=== PATIENT | female | born 1950 | race Caucasian/White ===

== ENCOUNTER 2016-12-27 11:30 | Inpatient (IN) | payer BC, OTHER ==
--- NOTE | ~2016-12-27 | HP ---
Unit #: [id number] #: [id number] Patient: BRENT MALDONADO [id number] [address] [address] [id number] I MR#: [id number] NAME: BRENT MALDONADO. ROOM: [facility] Age: 66 Sex: F Admission Date: 12/27/2016 : 1950 Attending Physician: Bob Correa M.D. Primary Care Physician: Adan Silva M.D. HISTORY AND PHYSICAL CHIEF COMPLAINT High sugars. HISTORY OF PRESENT ILLNESS The patient is a 66-year-old female with a past medical history of ischemic cerebrovascular accident, uncontrolled diabetes mellitus and hypertension, brought to the emergency room from the PCP office with sugars running high in the range of 550s. The patient's last hemoglobin A1c was more than 15. That was done in the PCP office. The patient has been noncompliant with her medication and has been eating pancakes for the last month. The patient's hemoglobin A1c back in June was 6.5 and the sugars were under control but, for unknown reason, the patient is not compliant for the last month and not checking the sugars. The patient has been on the sugary diet with pancakes for the last one month. The patient also complains of headache. Denies any nausea, vomiting, chest pain, palpitations, dizziness, fever, chills, short of breath. The patient is being admitted for uncontrolled sugars. PAST MEDICAL HISTORY 1. History of prior CVA. 2. Diabetes mellitus. 3. Hypertension. 4. History of arrhythmia. 5. Prior history of lung nodule. 6. Prior history of syncope. 7. Anxiety. PAST SURGICAL HISTORY 1. History of tonsillectomy. 2. Hysterectomy. 3. Cholecystectomy. ALLERGIES Allergic to tetracycline, cephalosporins, gabapentin and tetanus. HOME MEDICATIONS Medication list from the old records - she has been on: 1. Glipizide. 2. Xanax. 3. Aspirin. 4. Vaseretic. FAMILY HISTORY Significant for strokes in the patient's mother. Unit #: [id number] #: [id number] Patient: BRENT MALDONADO SOCIAL HISTORY The patient is a , in his 30s from [place] exposure. 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 She has never smoked. No history of drinking alcohol or illicit drug abuse. REVIEW OF SYSTEMS Fourteen point review of systems was performed and only pertinent positive findings are described above, remaining are negative. PHYSICAL EXAMINATION GENERAL: The patient is lying on the bed, not in acute distress. VITALS: The patient is afebrile. Pulse is 75, temperature is 97.9, blood pressure 139/72. HEAD: Atraumatic, normocephalic. EENT: Pupils equal, round, reactive to light and accommodation. Extraocular movements are intact. Moist mucous membranes. NECK: Supple. No JVD. LUNGS: Clear to auscultation bilaterally, no rhonchi, no wheezing. HEART: Regular rate and rhythm. ABDOMEN: Soft. Positive bowel sounds. EXTREMITIES: No cyanosis, no clubbing. The patient has a callus formation at the left foot. NEUROLOGICAL: Alert, awake, oriented. No gross focal motor deficit. PSYCH: Mood and affect appropriate. DIAGNOSTIC STUDIES LABORATORY DATA: Lab data is pending but from the PCP's office the hemoglobin A1c was more than 15 and the sugar is in the range of 550. Creatinine was normal. No other abnormalities in the CMP. Blood work from the hospital is pending. ASSESSMENT AND PLAN 1. Uncontrolled diabetes. 2. Hypertension. Plan is to admit patient for observation to telemetry. We will start the patient on sliding scale. Hemoglobin A1c more than 15. We will start the on Levemir 10 units subcu b.i.d. Will adjust the doses and continue with sliding scale and diabetic education. Repeat the labs, CBC, BMP. Case management for home health aid. Wound care for the left foot callus. Further recommendations to follow as more lab results are available. Dictated by Bo Huynh TD: 12/27/2016 12:06 JOB #: [id number] Unit #: [id number] #: [id number] Patient: BRENT MALDONADO HISTORY AND PHYSICAL X X HISTORY AND PHYSICAL
--- NOTE | ~2016-12-27 | HP ---
Unit #: [id number] #: [id number] Patient: BRENT MALDONADO [id number] [address] [address] [id number] I MR#: [id number] NAME: BRENT MALDONADO. ROOM: 318 Age: 66 Sex: F Admission Date: 12/27/2016 : 1950 Attending Physician: Bob Correa M.D. Primary Care Physician: Adan Silva M.D. HISTORY AND PHYSICAL ADDENDUM The lab results are back and patient has a blood sugar of 840 with a sodium of 130 and potassium of 5.6. The patient will be admitted as inpatient with sugars more than 500 and hyperkalemia. PLAN The patient will receive Levemir insulin and high-dose sliding scale. The patient will be started on IV fluids normal saline at 100 mL/hr and Kayexalate 30 mg x1. I will repeat the potassium again in six hours. I will have the endocrine consult for the uncontrolled sugars with the hyperkalemia likely due to hyponatremia. Further recommendations will follow. Dictated by Bo Huynh TD: 12/27/2016 15:02 JOB #: [id number] HISTORY AND PHYSICAL X X HISTORY AND PHYSICAL
--- NOTE | ~2016-12-27 | CO ---
Unit #: [id number] #: [id number] Patient: BRENT MALDONADO [id number] [address] [place], [place] [address] [id number] I MR#: [id number] NAME: BRENT MALDONADO. ROOM: 318 Age: 66 Sex: F Admission Date: 12/27/2016 : 1950 Attending Physician: Bob Correa M.D. Primary Care Physician: Adan Silva M.D. Consultation Date: 12/27/2016 CONSULTATION REPORT REASON FOR CONSULT Uncontrolled diabetes mellitus. HISTORY OF PRESENT ILLNESS This is a 66-year-old white female, who has a medical history of type 2 diabetes mellitus. She was seen in the primary care's office. She was sent to the emergency room after she was found to have high blood sugars in the PCP's office. On further workup, arterial blood sugar was over 800. She had stopped taking her medications more than a month ago, and she has been eating and has not been watching her diet. REVIEW OF SYSTEMS Remarkable for polyuria, polydipsia, weakness. Rest of the 10-point review of systems is unremarkable. PAST MEDICAL HISTORY Type 2 diabetes mellitus, history of CVA, hypertension, arrhythmia, anxiety. PAST SURGICAL HISTORY Tonsillectomy, hysterectomy, cholecystectomy. ALLERGIES To tetracyclines, , gabapentin, tetanus. HOME MEDICATIONS She has been on glipizide, but probably she has not been taking Xanax, aspirin, and Vaseretic. SOCIAL HISTORY She is a . Declines tobacco or alcohol. 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 PHYSICAL EXAMINATION GENERAL: She is lying comfortably. No acute distress. VITAL SIGNS: Afebrile. Blood pressure is stable. She weighs 63.5 kg. HEENT: EOMI. Pupils are equally reactive to light. NECK: Supple. No thyromegaly noted. CHEST: Has good air entry. CVS: Regular rhythm. S1, S2. ABDOMEN: Soft and nontender. Bowel sounds positive. EXTREMITIES: No edema or ulcers are noted. DIAGNOSTIC STUDIES Unit #: [id number] #: [id number] Patient: BRENT MALDONADO LABORATORY RESULTS: Glucose on admission was 840, sodium 130, potassium 5.6, chloride 95. A1c is not available, is pending. ASSESSMENT 1. Type 2 diabetes mellitus, uncontrolled due to the poor compliance with the medications and diet. 2. Pseudohyponatremia. 3. Hyperkalemia, treated. PLAN We will add NovoLog 5 units with each meal. Continue Levemir 10 units subcu b.i.d. Continue supplemental sliding scale as needed. We will continue to follow for further management. The patient will need the Nutrition consult. Dictated by... Bo Wagner/isabell TD: 12/28/2016 02:39 JOB #: [id number] CONSULTATION REPORT X Mitzy Storm MD X CONSULTATION REPORT
--- NOTE | ~2016-12-27 | A ---
[facility] Nutrition Therapy DATE: 12/28/16 Patient: BRENT MALDONADO Physician: RUSSELL Address: [address] [place] [address] Room/Bed: [address] [place] [address], Zip: [place] [address] Admit Date: 12/27/16 Date of : [birth year] Height: Weight: 121 55 NUTRITIONAL ASSESSMENT: REASON: CONSULT RE: DIET EDUCATION PT WAS ALSO SCREENED FOR ONE NUTRITION RISK PT RE: PRESSURE ULCER/NON-HEALING WOUND BUT NOT APPROPRIATE PT IS 66 Y.O. FEMALE ADMITTED FOR DIABETES UNCONTROLLED HT: 5'1", WT: 139# (63 KG), BMI: 26.3 RD PROVIDED WRITTEN AND VERBAL CC DIET EDUCATION. RD PROVIDED LIST OF FOODS TO AVOID/LIMIT AND FOODS TO EAT MORE OFTEN. RD EMPHASIZED IMPORTANCE OF CONSUMING CONSISTENT MEAL SCHEDULE + BALANCED MEALS AND SNACKS. PT REPORTS CONSUMING A LOT OF WHITE CARBOHYDRATES, SUCH PANCAKES, BREAD AND POTATOES. THIS RD PROVIDED HEALTHIER ALTERNATIVES. PT VERBALIZED UNDERSTANDING OF THE TOPIC. PT REPORTED NO DIET QUESTIONS AT THIS TIME. RD TO REMAIN AVAILABLE. OF NOTE, PT SEEMED PLEASANTLY CONFUSED DURING VISIT RECOMMENDATIONS: 1. ENCOURAGE COMPLIANCE OF CURRENT DIET ORDER-CC 2. RE-CONSULT RD IF FURTHER DIET EDUCATION REQUESTED RD WILL F/U PER PROTOCOL Respectfully, TATI HOLLAND MS, RD, LD Food and Nutritional Services [facility] cc: client file
--- NOTE | ~2016-12-27 | DS ---
Unit #: [id number] #: [id number] Patient: BRENT MALDONADO [id number] [address] [address] [id number] I MR#: [id number] NAME: BRENT MALDONADO. ROOM: 240 Age: 66 Sex: F Admission Date: 12/27/2016 : 1950 Discharge Date: 12/30/2016 Attending Physician: Hien Trevino M.D. Primary Care Physician: Adan Silva M.D. DISCHARGE SUMMARY ADDENDUM HOSPITAL COURSE Overnight the patient has remained stable, and blood sugars have remained stable. Discussion with family again today indicates that they are planning to send her home rather than going to long-term care. This is secondary to the patient requiring a locked dementia unit, which unfortunately, we are having difficulty arranging. Family is also in the process of obtaining power of trademark attorney paperwork. The patient will be discharged home on medications as previously noted with the exception of changing NovoLog to 6 units subcu t.i.d. given I suspect her diet at home will be different. I am also taking her Vaseretic 10/25 mg and changing it to half a tab p.o. daily rather than writing for Vasotec and Hydrochlorothiazide independent of each other. Dictated by... Hien Trevino M.D. SHAYLEE/milad TD: 12/31/2016 12:29 JOB #: [id number] DISCHARGE SUMMARY X Hien Trevino MD X DISCHARGE SUMMARY
--- NOTE | ~2016-12-27 | DS ---
Unit #: [id number] #: [id number] Patient: BRENT PRADO [id number] [address] [place], [place] [address] [id number] I MR#: [id number] NAME: BRENT PRADO. ROOM: 240 Age: 66 Sex: F Admission Date: 12/27/2016 : 1950 Discharge Date: 12/30/2016 Attending Physician: Hien Trevino M.D. Primary Care Physician: Adan Silva M.D. DISCHARGE SUMMARY PRINCIPAL DIAGNOSES 1. Diabetes mellitus type 2, insulin requiring and uncontrolled with hemoglobin A1c of 15.4. 2. Dementia with associated behavioral disturbance, likely vascular in origin. 3. Hypertension. 4. Hyperkalemia, resolved. 5. Prior history of stroke. 6. History of arrhythmia. 7. Anxiety. 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 Storm, endocrinology. PROCEDURE None. CLINICAL HISTORY AND HOSPITAL COURSE Ms. Prado is a 66-year-old female referred from her primary care provider due to significant hyperglycemia. Please refer to H and P for further details. The patient was also found to be hyperkalemic and was subsequently admitted to inpatient status to the hospital. The patient was placed on insulin subcutaneously and Dr. Storm was consulted. With insulin therapy, sugars have improved significantly. Glucose readings are now in the one-teens to low 220s. She did have a single episode of hypoglycemia and we are going to decrease insulin slightly. She has also received diabetic education. In regard to patient's hyperkalemia, this was treated and has not recurred. I think she is safe to place back on BARBARA inhibitor. Blood pressure here has been on the low end of normal on half dose of her blood pressure medications and thus I am going to discontinue. The patient does have significant dementia and is known for not taking her medications, wandering in the street, and so forth. She is unsafe to be living at home independently and after discussion with family, unfortunately they could not care for her at home. Plan is for patient to transition to a long-term care facility upon discharge from this facility when arranged. DISCHARGE CONDITION Stable. Unit #: [id number] #: [id number] Patient: BRENT PRADO DISCHARGE STATUS Discharge to long-term care. DISCHARGE MEDICATIONS 1. Discontinue Colestid. 2. Coreg 25 mg b.i.d. 3. Namzaric 7/10 mg one tablet daily. 4. Hydrochlorothiazide 12.5 mg daily. 5. Enalapril 5 mg daily. 6. Levemir 15 units subcutaneously at night. 7. NovoLog 5 units subcutaneously t.i.d. with meals with associated medium-dose sliding scale. 8. Aspirin 81 mg daily. 9. Omeprazole 20 mg daily. 10. Aggrenox one tablet p.o. b.i.d. DISCHARGE INSTRUCTIONS 1. The patient was instructed to follow a constant carb diet. 2. She should continue Accu-Cheks a.c. and at bedtime. 3. She can increase her activity as tolerated. FOLLOWUP The patient will follow up with certified court/medical interpreter of facility upon acceptance. Time spent on discharge today, 34 minutes. Dictated by... Bo Alvarez/flor TD: 12/30/2016 11:13 JOB #: [id number] DISCHARGE SUMMARY X Hien Trevino MD X DISCHARGE SUMMARY
[~2016-12-27 11:30] MED LIST: AGGRENOX PO; AGGRENOX1 CAP PO; ALLEGRA-D1 TAB.SR1 PO; ALLEGRA180 MG PO; ALLERGY MED PO; ALPRAZOLAM PO; AMARYL; AMOXICILLIN; AMOXICILLIN PO; AMOXICILLIN875 MG PO; ARICEPT5 M1 PO; ASPIRIN; ASPIRIN EC81 M1 PO; ASPIRIN81 M1 PO; ASPIRINEC PO; ATENOLOL; ATENOLOL PO; AVANDIA; CARDIZEM; CARDIZEM CD PO; CARVEDILOL25 MG PO; CERTAGEN PO; CHOLESTEROL MED; CLARITIN10 MG; COLESTID PO; COLESTIPOL HCL1 G; COLESTIPOL HCL11 PO; COREG PO; COREG12.5 MG PO; CYANOCOBAL1000 MCG/M INJ; DIABETA5 M1 PO; DILTIAZEM 24HR120 MG PO; DILTIAZEM ER120 M2 PO; ENALAPRIL/HCTZ1 TA3 PO; FAMOTIDINE PO; FERROUS SULFATE PO; FOLIC ACID1 MG PO; GLUCOPHAGE500 M1 PO; GLUCOPHAGE500 MG PO; GLUCOTROL PO; GLYBURIDE; GLYBURIDE PO; GLYNASE PO; IRON PO; JANUVIA50 MG PO; KETOPROFEN PO; LIPITOR; LIPITOR PO; METFORMIN HCL500 M1 PO; METFORMIN PO; MICRONASE5 M1 PO; MICRONASE5 M2 PO; NAMZARIC 7 MG-1 EACH PO; NIACIN500 M2 PO; OMEPRAZOLE20 M1 PO; OMEPRAZOLE20 M2 PO; PATIENT'S PHARMACY; PHENERGAN PO; PLAVIX PO; POTASSIUM GLUCONATE PO; POTASSIUM PO; PRAVACHOL20 MG PO; PRILOSEC PO; PRILOSEC20 M1 PO; TENORMIN25 MG PO; TOPAMAX25 MG PO; TUSSIONEX PENN473 ML; VASERETIC 10-251 TAB PO; VASERETIC 5-12.1 TAB; VASERETIC 5-12.1 TAB PO; VASORETIC; VASOTEC PO; VITAMIN B650 M1 PO; XANAX0.5 MG PO; ZITHROMAX; ZOFRAN ODT4 MG PO
[2016-12-27 13:12] LABS: BASOPHIL% 0.6 % (0-2.5); EOSINOPHIL% 0.6 % (0.0-7.0); HEMATOCRIT 36.8 % (35.0-45.0); HEMOGLOBIN 12.2 gm/dL (12.0-16.0); LYMPHOCYTE# 0.5 X10e3 (1.0-3.5); LYMPHOCYTE% 12.7 % (17.0-45.0); MEAN CELL VOLUME 96.4 FL (83-96); MEAN CORPUSCULAR HEMOGLOBIN 31.9 PG (28-34); MEAN CORPUSCULAR HGB CONC 33.1 g/dL (30-36); MEAN PLATELET VOLUME 9.5 FL (6.5-11.5); MONOCYTE# 0.2 X10e3 (0-1.0); MONOCYTE% 4.7 % (3.0-12.0); NEUTROPHIL# 3.4 X10e3 (1.5-7.1); NEUTROPHIL% 81.4 % (40-75); PLATELET COUNT 184 X10e3 (140-420); RED BLOOD COUNT 3.82 X10e (3.90-5.30); RED CELL DISTRIBUTION WIDTH 12.1 % (11.0-15.5); WHITE BLOOD COUNT 4.2 X10e3 (4.0-10.5)
[2016-12-27 13:14] LABS: DIFF IND NO
[2016-12-27 13:44] LABS: BLOOD UREA NITROGEN 19 mg/dL (9-23); BUN/CREATININE RATIO 21.11; CALCIUM SERUM 8.9 mg/dL (8.4-10.2); CARBON DIOXIDE 24 mmol/L (22-31); CHLORIDE 95 mmol/L (100-111); CREATININE SERUM 0.9 mg/dL (0.6-1.4); GLOM FILT RATE Estimated ABOVE60 mL/min (>60); SODIUM 130 mmol/L (135-145)
[2016-12-27 14:11] LABS: GLUCOSE FASTING 840 mg/dL (70-110)
[2016-12-27 14:12] LABS: POTASSIUM 5.6 mmol/L (3.5-5.1)
[2016-12-28 09:47] LABS: BASOPHIL% 0.6 % (0-2.5); EOSINOPHIL# 0.1 X10e3 (0-0.7); EOSINOPHIL% 1.2 % (0.0-7.0); HEMATOCRIT 35.2 % (35.0-45.0); HEMOGLOBIN 11.9 gm/dL (12.0-16.0); LYMPHOCYTE% 19.3 % (17.0-45.0); MEAN CORPUSCULAR HEMOGLOBIN 31.5 PG (28-34); MEAN CORPUSCULAR HGB CONC 33.9 g/dL (30-36); MEAN PLATELET VOLUME 8.9 FL (6.5-11.5); MONOCYTE# 0.2 X10e3 (0-1.0); MONOCYTE% 4.3 % (3.0-12.0); NEUTROPHIL# 3.8 X10e3 (1.5-7.1); NEUTROPHIL% 74.6 % (40-75); PLATELET COUNT 184 X10e3 (140-420); RED BLOOD COUNT 3.78 X10e (3.90-5.30); RED CELL DISTRIBUTION WIDTH 12.1 % (11.0-15.5); WHITE BLOOD COUNT 5.1 X10e3 (4.0-10.5)
[2016-12-28 09:52] LABS: DIFF IND NO; MEAN CELL VOLUME 93.1 FL (83-96)
[2016-12-28 10:25] LABS: BLOOD UREA NITROGEN 17 mg/dL (9-23); BUN/CREATININE RATIO 24.28; CALCIUM SERUM 8.3 mg/dL (8.4-10.2); CARBON DIOXIDE 24 mmol/L (22-31); CHLORIDE 101 mmol/L (100-111); CREATININE SERUM 0.7 mg/dL (0.6-1.4); GLOM FILT RATE Estimated ABOVE60 mL/min (>60); GLUCOSE FASTING 308 mg/dL (70-110); POTASSIUM 3.6 mmol/L (3.5-5.1); SODIUM 135 mmol/L (135-145)
[2016-12-29 06:35] LABS: BLOOD UREA NITROGEN 12 mg/dL (9-23); CARBON DIOXIDE 26 mmol/L (22-31); CHLORIDE 103 mmol/L (100-111); CREATININE SERUM 0.6 mg/dL (0.6-1.4); GLOM FILT RATE Estimated ABOVE60 mL/min (>60); GLUCOSE FASTING 116 mg/dL (70-110); MAGNESIUM 1.8 mg/dL (1.6-3.0); POTASSIUM 3.7 mmol/L (3.5-5.1); SODIUM 139 mmol/L (135-145)
[2016-12-30] MEDS ORDERED: VASOTEC10 MG PO (10:21)
[2016-12-30] MEDS ORDERED: ASPIRIN81 MG PO (10:22)
[2016-12-30] MEDS ORDERED: HYDROCHLOROTH12.5 M1 PO (10:22)
[2016-12-30] MEDS ORDERED: NOVOLOG100 U/ML (10:23)
[2016-12-30] MEDS ORDERED: LEVEMIR100 UNITS/ SUBQ (10:23)
[2016-12-30] MEDS ORDERED: NOVOLOG100 UNITS/ SUBQ (10:24)
[2016-12-30] MEDS ORDERED: VASERETIC 10-251 TAB PO (10:49)
== END 2016-12-30 11:06 | disposition home health service (06) | DRG 638 ==
LOC: CEDOF 11:30 → C2A 12-29 11:16
PROVIDERS: Internal Medicine
DX: E11.65 Type 2 diabetes mellitus with hyperglycemia (principal); E87.1 Hypo-osmolality and hyponatremia; E87.5 Hyperkalemia; F03.90 Unspecified dementia, unspecified severity, without behavioral disturbance, psychotic disturbance, mood disturbance, and anxiety; Z91.11 Patient's noncompliance with dietary regimen; Z91.14 Patient's other noncompliance with medication regimen; Z86.73 Personal history of transient ischemic attack (TIA), and cerebral infarction without residual deficits; F41.9 Anxiety disorder, unspecified; Z90.710 Acquired absence of both cervix and uterus; Z90.49 Acquired absence of other specified parts of digestive tract; Z88.8 Allergy status to other drugs, medicaments and biological substances; Z79.82 Long term (current) use of aspirin; I10 Essential (primary) hypertension
CPT/HCPCS: 80048; 82607; 82947; 83036; 83735; 84132; 84443; 85025; 97116; 97161; 97165; G8978-GP; G8979-GP; G8980-GP; G8987-GO; G8988-GO; G8989-GO; J1650; J1815

== ENCOUNTER 2017-01-01 15:03 | Observation (INO) | payer BC, OTHER ==
--- NOTE | ~2017-01-01 | A ---
[facility] Nutrition Therapy DATE: 01/15/17 Patient: BRENT MALDONADO Physician: CHRISTELLE Address: [address] [place] [address] Room/Bed: [address] [place] [address], Zip: [place] [address] Admit Date: 01/01/17 Date of : [birth year] Height: 5 0 Weight: 119 54.4 NUTRITIONAL ASSESSMENT: REASON: LOS ASSESSMENT PT IS 66 Y.O. FEMALE ADMITTED FOR ELEVATED BLOOD SUGAR LEVELS PMH: UNCONTROLLED T2DM, HTN, HLD, CVA, DEMENTIA, ANEMIA Anthropometrics: 5'0", WT: 119# (54 KG), BMI: 23.2 Labs: GLU: 166, ALB: 3.2 (ADMIT), A1c: 15.4 (12/27/16) Meds: NOVOLOG, LEVEMIR, LIPITOR, PROTONIX, ZOFRAN, NACL I/O & Bowel function: 890/600, 1 BM NOTED Skin Integrity: LLE 1+ EDEMA; NO KNOWN SKIN ISSUES Estimated Nutrition Needs: INCREASED NUTRIENT NEEDS 2' ?WEIGHT LOSS NOTED, POOR PO INTAKE/APPETITE PRIOR TO ADMIT Assessment: CHART REVIEWED AND EVENTS NOTED. PT SEEN FOR LENGTH OF STAY ASSESSMENT (10+ DAYS). PT REPORTS APPETITE IMPROVING, NOTING NO C/O N/V/D. PT DENIES ANY CHEWING OR SWALLOWING DIFFICULTIES. PT REPORTS DECREASED PO INTAKE AND APPETITE PRIOR TO ADMIT. PT REPORTS WEIGHT LOSS BUT UNABLE TO IDENTIFY AMOUNT AND TIME TRAME (?DEMENTIA). PER [employer], PT WEIGHED ~121-139# IN DEC 2015??. OF NOTE, PT CONFUSED AND LETHARGIC AT THIS TIME. RD ENCOURAGED ADEQUATE KCAL AND PROTEIN INTAKE, PT AGREED TO GLUCERNA SHAKES BID. RD ALSO LEFT REQUESTED WRITTEN CC DIET EDUCATION. PT REPORTED NO QUESTIONS AT THIS TIME. RD TO REMAIN AVAILABLE. Dx: INADEQUATE NUTRIENT INTAKE R/T DECREASED APPETITE AEB PT REPORT ABOVE. -IMPAIRED GLYCEMIC CONTROL R/T DX, PMH AEB ELEVATED BLOOD SUGAR LEVELS, ELEVATED A1c, NEED FOR THERAPEUTIC DIET ORDER. Intervention: 1. CC+ HH DIET (60 GRAMS CARBS PER MEAL) 2. GLUCERNA SHAKES BID 3. WRITTEN CC DIET EDUCATION Monitoring, Evaluation and Goals: 1. PO INTAKE; PROVIDE AND CONSUME ADEQUATE NUTRITION W/NO C/O N/V/D (PO>50%) 2. WEIGHTS; PREVENT FURTHER WEIGHT LOSS? 3. LABS; WNL: GLU [facility] Nutrition Therapy DATE: 01/15/17 Patient: BRENT M ERICA Physician: CHRISTELLE Address: [address] [place] [address] Room/Bed: [address] [place] [address], Zip: [place] [address] Admit Date: 01/01/17 Date of : [birth year] Height: 5 0 Weight: 119 54.4 MONITOR: -PO INTAKE/APPETITE -WEIGHTS -LABS (GLU) Recommendations: 1. ORDER JOSHUA GLUCERNA SHAKES BID W/MEALS 2. ENCOURAGE COMPLIANCE OF CURRENT DIET ORDER ABOVE 2' DX, PMH 3. ENCOURAGE ADEQUATE KCAL AND PROTEIN INTAKE RD WILL F/U PER PROTOCOL PT IS MILD/MODERATELY COMPROMISED Respectfully, TATI HOLLAND MS, RD, LD Food and Nutritional Services [facility] cc: client file
--- NOTE | ~2017-01-01 | CO ---
Unit #: [id number] #: [id number] Patient: BRENT MALDONADO [id number] [address] [place], [place] [address] [id number] I MR#: [id number] NAME: BRENT MALDONADO. ROOM: [facility] Age: 66 Sex: F Admission Date: 01/01/2017 : 1950 Attending Physician: Bob Correa M.D. Primary Care Physician: Adan Silva M.D. Consultation Date: 01/14/2017 CONSULTATION REPORT REASON FOR CONSULTATION Uncontrolled diabetes mellitus with hypoglycemia. HISTORY OF PRESENT ILLNESS This is a 66-year-old female, who was initially residing at home. She was initially admitted on 12/27/2016 in the hospital with hyperglycemia and then she was discharged home, but she was readmitted again on 01/01/2017 with the uncontrolled blood sugars with the blood sugars were above 500. It seems like she has not been able to take care of her due to her dementia and family who has not been able to take care of her either. The patient is a very poor historian. Since her admission, her blood sugar has been very erratic she has some episodes of the hypoglycemia also. Her insulin has been adjusted several times despite that her blood sugars are uncontrolled. I have been asked to see the patient for further management. REVIEW OF SYSTEMS The patient has memory problems. Rest of the 12-point review of systems is unremarkable. PAST MEDICAL HISTORY 1. Diabetes mellitus, uncontrolled. 2. History of hypoglycemia. 3. Hypertension. 4. Dementia. 5. Cardiac arrhythmias. PAST SURGICAL HISTORY Tonsillectomy, hysterectomy, and cholecystectomy. SOCIAL HISTORY The patient lives alone and states her daughter lives close to her. She walks without assistance. She has no tobacco use. No alcohol. FAMILY HISTORY CVA. ALLERGIES cephalosporin, tetracycline, carbapenem, and tetanus toxoid. CURRENT MEDICATION List is reviewed. The patient is on NovoLog 10 units with meals plus high dose supplement sliding scale. She is on Levemir which was discontinued. For other medication list, please see current MAR. Unit #: [id number] #: [id number] Patient: BRENT MALDONADO PHYSICAL EXAMINATION GENERAL: She is comfortable, in no acute distress. VITAL SIGNS: Temperature, she is afebrile; blood pressure is 149/69. HEENT: EOMI. Pupils equally reactive to light. NECK: Supple. No thyromegaly noted. CHEST: Good air entry. CVS: Regular rhythm. No murmurs. ABDOMEN: Soft and nontender. Bowel sounds positive. EXTREMITIES: No edema noted. No ulcers. SKIN: No rashes. NEUROLOGIC: Nonfocal. Moving all extremities. PSYCHIATRIC: Does have a memory problems. DIAGNOSTIC STUDIES LABORATORY RESULTS: Reviewed. Last A1c on 12/27/2016 was 15.4. ASSESSMENT 1. Type 2 diabetes mellitus, uncontrolled. 2. Insulin dependence. 3. Recurrent hypoglycemia due to the insulin. PLAN I am going to restart the patient back on her Levemir 10 units subcu in the morning daily. Change the NovoLog to 8 units with meals. Limit carbs to 60 g consistent carb diet 15 g, carb at bedtime. Discontinue high-dose sliding scale to check the only low dose. Accu-Cheks a.c. and h.s. We will continue to follow the patient for further management. Dictated by... Bo Wagner/isabell TD: 01/15/2017 00:13 JOB #: [id number] CONSULTATION REPORT X Mitzy Storm MD CONSULTATION REPORT
--- NOTE | ~2017-01-01 | DS ---
Unit #: [id number] #: [id number] Patient: BRENT MALDONADO [id number] [address] [place], [place] [address] [id number] I MR#: [id number] NAME: BRENT MALDONADO. ROOM: 205 Age: 66 Sex: F Admission Date: 01/01/2017 : 1950 Discharge Date: Attending Physician: Bob Correa M.D. Primary Care Physician: Adan Silva M.D. DISCHARGE SUMMARY DISCHARGE DIAGNOSES 1. Uncontrolled diabetes mellitus on insulin. 2. Normocytic anemia. 3. Hypertension. 4. Dementia with behavioral disturbance. HOSPITAL COURSE The patient is a 66-year-old female with a past medical history of diabetes, anemia, hypertension, CVA, arrhythmia, lung nodules. Brought to the emergency room with elevated sugars. The patient's sugars at the time of arrival in the emergency room was 519 with a bicarb of 26 and pH of 7.45. The patient was admitted to the floor. The patient was seen by endocrinology during the hospitalization and patient (1) with the sugars up and down during the hospitalization. The patient was started back on the Levemir 10 units only during morning and NovoLog 8 units with each meal. Endocrinology also recommended the patient to limit the bedtime snack at 15 g carbs. The patient showed improvement with sugars. The patient's hypertension has been stable and patient had echocardiogram through the hospitalization that showed EF of 50% to 55% and mild concentric left ventricular hypertrophy and mild regurgitation from the mitral, tricuspid, and pulmonic valves. The patient's hospitalization course was prolonged due to the APS service and rehab placement. The patient's (2) was pending and the patient was accepted at the rehab placement and the patient is discharged today in a stable condition. PHYSICAL EXAMINATION GENERAL: On examination, the patient is lying on a bed, not in acute distress. VITAL SIGNS: Blood pressure 129/72, temperature 98.1, pulse 63, respirations 18. HEENT: Head: Atraumatic, normocephalic. Pupils equal, round, and reactive to light and accommodation. LUNGS: Clear to auscultation bilaterally. HEART: Regular rate and rhythm. ABDOMEN: Soft. Positive bowel sounds. EXTREMITIES: No pedal edema. DIAGNOSTIC STUDIES LABORATORY: Glucose 156, BUN 20, creatinine 0.6, sodium 140, potassium 4.3, chloride 105, bicarbonate 26, calcium 8.6. Hemoglobin A1c 15.4 from December 27. WBC 4.9, hemoglobin 11.4, hematocrit 33.3, platelets 223,000. DISCHARGE MEDICATIONS 1. Levemir 10 units subcutaneous at 8 o'clock and NovoLog 8 units Unit #: [id number] #: [id number] Patient: BRENT MALDONADO subcutaneous three times a day. 2. Aspirin 81 mg daily. 3. Protonix 40 mg. 4. Namzaric 7 mg daily. 5. Coreg 25 mg twice daily. 6. Lipitor 40 mg at bedtime. 7. Aggrenox one cap twice daily. DISPOSITION The patient is discharged in a stable condition to the rehab. FOLLOWUP The patient is to follow with PCP and endocrinology in one to two weeks. Dictated by... Bo Huynh TD: 01/16/2017 11:50 JOB #: [id number] DISCHARGE SUMMARY X X DISCHARGE SUMMARY
--- NOTE | ~2017-01-01 | HP ---
Unit #: [id number] #: [id number] Patient: BRENT MALDONADO [id number] [address] [place], [place] [address] [id number] MR#: [id number] NAME: BRENT MALDONADO. ROOM: Age: 66 Sex: F Admission Date: 01/01/2017 : 1950 Attending Physician: Dionicio Schafer M.D. Primary Care Physician: Adan Silva M.D. HISTORY AND PHYSICAL CHIEF COMPLAINT Elevated blood sugar. HISTORY OF PRESENT ILLNESS The patient is a 66-year-old female with past medical history of diabetes, anemia, hypertension, cerebrovascular accident, arrhythmia, lung nodule, anxiety, dementia, who presented to the emergency department for evaluation of the above. Of note the patient was hospitalized at [facility] December 272016 for uncontrolled diabetes. Per the discharge summary, the patient was going to be discharged to a locked dementia unit however they were having difficulty arranging that so the patient went home. Family was also in the process of obtaining power of senior trial attorney paperwork. The patient returns today. She states that she "couldn't think." She called EMS. Upon EMS arrival the patient's blood sugar was noted to be elevated. She was brought to the emergency department for further evaluation. In the emergency department glucose was 519 on comprehensive metabolic panel with bicarbonate of 26, pH of 7.45. She was given 1 L of normal saline. She is being admitted to [facility] for evaluation and further treatment. The patient is unable to tell me when her last dose of insulin was. She states that she has been checking her blood sugars and they have been running high but she is not sure exact numbers. She denies any fever, no cough, no shortness of breath, no chest pain, no vomiting or diarrhea, no urinary symptoms. PAST MEDICAL HISTORY 1. Admission to [facility] December 27-2016 for diabetes. 2. Anemia. 3. Hypertension. 4. Cerebrovascular accident. 5. History of arrhythmia. 6. History of lung nodule. 7. Anxiety. 8. Dementia with behavioral disturbance. PAST SURGICAL HISTORY 1. Tonsillectomy. 2. Hysterectomy. 3. Cholecystectomy. Unit #: [id number] #: [id number] Patient: BRENT MALDONADO SOCIAL HISTORY The patient lives alone. She states that her daughter lives close. She walks without assistance. There is no tobacco use. FAMILY HISTORY Family history is notable for cerebrovascular accident. ALLERGIES Cephalosporins, tetracycline, carbapenem, tetanus toxoid. HOME MEDICATIONS Per the discharge summary from December 29, 2016 include: 1. Coreg 25 mg b.i.d. 2. Namzaric 7/10 daily. 3. Hydrochlorothiazide 12.5 daily. 4. Enalapril 5 mg daily. 5. Levemir 15 units nightly. 6. Aspirin 81 mg daily. 7. Omeprazole 20 mg daily. 8. Aggrenox b.i.d. 9. NovoLog 6 units t.i.d. Home medications will need to be reviewed and verified. REVIEW OF SYSTEMS A complete review of systems is negative except as indicated in the HPI. DIAGNOSTIC STUDIES LABORATORY: Complete blood count notable for hemoglobin and hematocrit of 11 and 32.4 respectively. Arterial blood gas shows pH of 7.456, pCO2 of 34.8, pO2 of 105 on room air. Comprehensive metabolic panel notable for sodium of 131, chloride is 99, glucose 519, bicarbonate is 26, calcium 8.2 but corrects when albumin of 3.4 is accounted for, total protein is 5.9, beta hydroxybutyrate is 0.08. Urinalysis notable for greater than 1000 glucose. PHYSICAL EXAMINATION VITAL SIGNS: Temperature is 97.1. Pulse 63. Respirations 16. Blood pressure 129/68. Oxygen saturation is 99% on room air. GENERAL: The patient is a female who is awake and alert, in no acute distress. HEENT: The head is atraumatic. Mucous membranes are moist. NECK: Neck is supple. Trachea is midline. CARDIOVASCULAR: Regular rate and rhythm. The patient does have a 3/6 systolic ejection murmur. LUNGS: Lungs are clear to auscultation bilaterally with no increased work of breathing. ABDOMEN: Abdomen is soft, nontender, with bowel sounds present in all four quadrants. EXTREMITIES: Extremities are nontender no pedal edema. NEUROLOGIC: The patient is awake and alert. She is oriented to person and place. She does not know the year. PSYCHIATRIC: The patient has a flat affect. She is cooperative. SKIN: Skin of examined areas is warm and dry. ASSESSMENT The patient is a 66-year-old female with: Unit #: [id number] #: [id number] Patient: BRENT MALDONADO 1. Uncontrolled diabetes. The patient had a hemoglobin A1C on December 27, 2016 that was 15.4. She received 1 L of normal saline in the emergency department. 2. Normocytic anemia. 3. Hypertension. 4. History of cerebrovascular accident. 5. History of arrhythmia. 6. History of lung nodule. 7. Dementia with behavioral disturbance. PLAN 1. Admit for observation. 2. Normal saline at 75 mL an hour. 3. Low dose sliding-scale insulin with Accu-Cheks. 4. Restart Levemir. 5. Healthy heart consistent carb diet. 6. executive account manager/social work consult regarding home safety and possible placement. 7. P.r.n. Tylenol. 8. SCDs for DVT prophylaxis. 9. Repeat labs in the morning. 10. Additional workup and consultants based on above. Dictated by Bo Caldwell/suzanna TD: 01/01/2017 16:12 JOB #: [id number] HISTORY AND PHYSICAL X Alondra Mora MD X HISTORY AND PHYSICAL
--- NOTE | ~2017-01-01 | DS ---
Unit #: [id number] #: [id number] Patient: BRENT PRADO [id number] [address] [address] [id number] I MR#: [id number] NAME: BRENT PRADO. ROOM: [facility] Age: 66 Sex: F Admission Date: 01/01/2017 : 1950 Discharge Date: 01/02/2017 Attending Physician: Hien Trevino M.D. Primary Care Physician: Adan Silva M.D. DISCHARGE SUMMARY PRINCIPAL DIAGNOSES 1. Severe hyperglycemia secondary to medication noncompliance. 2. Severe dementia with behavioral disturbance, namely wandering. 3. Diabetes mellitus type 2, insulin requiring and uncontrolled with hemoglobin A1c of 15.4. 4. Hypertension. 5. Normocytic anemia. 6. Anxiety. CONSULTANTS None. PROCEDURES None. CLINICAL HISTORY AND HOSPITAL COURSE Ms. Prado is a 66-year-old female with a history of progressive dementia and poorly controlled diabetes who presents to the ER after her daughter called EMS because the patient was found to have blood sugars that were recorded as high on Accu-Chek at home. Patient was just discharged from this facility two days prior, after presenting with high blood sugars. Please refer to H and P for further details. Patient was subsequently placed in observation. Patient was placed back on her discharge insulins and sugars have been stable. I will note, she had a single episode of hypoglycemia after lunch and I am going to mildly decrease her NovoLog. Otherwise sugars have remained in the 140s to 250s. Blood pressures also remain stable. Several discussions were had with the patient's family regarding safety at home. At this point the patient is medically stable and I am going to discharge her. However, she will remain here overnight as family tries to arrange care for her. At this point family is going to try to arrange 24 hour care for her at home with a caregiver and/or we are going to try to get her into a dementia unit. DISCHARGE CONDITION Stable. DISCHARGE STATUS Discharge either to home on 24 hour care versus dementia unit. DISCHARGE MEDICATIONS 1. Coreg 25 mg b.i.d. Unit #: [id number] #: [id number] Patient: BRENT PRADO 2. Namzaric 7/10 mg 1 daily. 3. Levemir 15 units at bedtime. 4. NovoLog 4 units subcu t.i.d. with meals. 5. Aspirin 81 mg daily. 6. Omeprazole 20 mg daily. 7. Aggrenox 1 capsule b.i.d. DISCHARGE INSTRUCTIONS Patient instructed to follow a constant carb diet. She will continue Accu-Cheks a.c. and h.s. and she can have sliding scale insulin if necessary. She can increase her activity as tolerated but she is completely ambulatory and independent. FOLLOWUP The patient will followup with her primary care physician, Dr. Silva, in approximately two weeks. Dictated by... Hien Trevino M.D. SHAYLEE/mariah TD: 01/03/2017 10:43 JOB #: [id number] DISCHARGE SUMMARY X Hien Trevino MD X DISCHARGE SUMMARY
--- NOTE | ~2017-01-01 | DS ---
Unit #: [id number] #: [id number] Patient: BRENT MALDONADO [id number] [address] [place], [place] [address] [id number] I MR#: [id number] NAME: BRENT MALDONADO. ROOM: 205 Age: 66 Sex: F Admission Date: 01/01/2017 : 1950 Discharge Date: Attending Physician: Hien Trevino M.D. Primary Care Physician: Adan Silva M.D. DISCHARGE SUMMARY ADDENDUM DISCHARGE DIAGNOSES (addition) 1. Recurrent hypoglycemia. 2. Hyperlipidemia. 3. Precordial murmur. PROCEDURE Two-dimensional echocardiogram, which is currently pending. HOSPITAL COURSE The patient has remained in the hospital given family has now opted to transfer guardianship to the [facility]. She is currently awaiting location of a long-term memory care unit and guardianship of the [facility]. The patient has developed recurrent hypoglycemia, always about eight hours after dosing of Levemir. Dose of Levemir has been continuously dropped and timing of dosing has changed but she continues to develop recurrent hypoglycemia, again, about eight hours after dosing. I am going to discontinue Levemir and place her just on scheduled doses of NovoLog with meals with an associated sliding scale. I did check a lipid panel and the patient was found to have hyperlipidemia and was placed on statin therapy. The patient also has a mild precordial murmur for which I am going to obtain a two-dimensional echocardiogram, but less significant findings she can have outpatient evaluation by Cardiology. The patient will be discharged when accepting facility arranged. Further hospital course to be dictated as an addendum. Dictated by... Hien Trevino M.D. SHAYLEE/shaun TD: 01/13/2017 07:27 JOB #: [id number] Unit #: [id number] #: [id number] Patient: BRENT MALDONADO DISCHARGE SUMMARY X Hien Trevino MD DISCHARGE SUMMARY
[2017-01-01 14:38] LABS: BASOPHIL% 0.8 % (0-2.5); HEMATOCRIT 32.4 % (35.0-45.0); LYMPHOCYTE# 0.8 X10e3 (1.0-3.5); LYMPHOCYTE% 18.3 % (17.0-45.0); MEAN CELL VOLUME 93.7 FL (83-96); MEAN CORPUSCULAR HEMOGLOBIN 31.8 PG (28-34); MEAN CORPUSCULAR HGB CONC 33.9 g/dL (30-36); MEAN PLATELET VOLUME 8.7 FL (6.5-11.5); MONOCYTE# 0.3 X10e3 (0-1.0); MONOCYTE% 6.3 % (3.0-12.0); NEUTROPHIL# 3.3 X10e3 (1.5-7.1); NEUTROPHIL% 73.6 % (40-75); PLATELET COUNT 188 X10e3 (140-420); RED BLOOD COUNT 3.46 X10e (3.90-5.30); RED CELL DISTRIBUTION WIDTH 12.2 % (11.0-15.5); WHITE BLOOD COUNT 4.5 X10e3 (4.0-10.5)
[2017-01-01 14:39] LABS: DIFF IND NO
[2017-01-01 14:42] LABS: ARTERIAL BLOOD GAS ALLEN TEST Y; ARTERIAL BLOOD GAS ART SITE LEFT RADIAL; ARTERIAL BLOOD GAS CARBOXY HB 0.3 %sat (0.0-9.0); ARTERIAL BLOOD GAS HCO3 24.5 mmol/L; ARTERIAL BLOOD GAS MET HB 0.6 %sat (0.0-2.0); ARTERIAL BLOOD GAS PCO2 34.8 mmHg (35.0-45.0); ARTERIAL BLOOD GAS pH 7.456 (7.350-7.450); ARTERIAL DRAW? YES
[~2017-01-01 15:03] MED LIST changes: +ASPIRIN81 MG PO; +HYDROCHLOROTH12.5 M1 PO; +LEVEMIR100 UNITS/ SUBQ; +NOVOLOG100 U/ML; +NOVOLOG100 UNITS/ SUBQ; +VASOTEC10 MG PO
[2017-01-01 15:14] LABS: ALBUMIN SERUM 3.4 g/dL (3.5-5.0); ALKALINE PHOSPHATASE 63 U/L (32-92); ALT (SGPT) 33 U/L (10-40); AST (SGOT) 30 U/L (10-42); BILIRUBIN,TOTAL 0.4 mg/dL (0.2-2.0); BLOOD UREA NITROGEN 15 mg/dL (9-23); BUN/CREATININE RATIO 18.75; CALCIUM SERUM 8.2 mg/dL (8.4-10.2); CARBON DIOXIDE 26 mmol/L (22-31); CHLORIDE 99 mmol/L (100-111); CREATININE SERUM 0.8 mg/dL (0.6-1.4); GLOM FILT RATE Estimated ABOVE60 mL/min (>60); POTASSIUM 3.9 mmol/L (3.5-5.1); PROTEIN TOTAL SERUM 5.9 g/dL (6.0-8.3); SODIUM 131 mmol/L (135-145)
[2017-01-01 15:15] LABS: URINE SOURCE CLEAN CATCH
[2017-01-01 15:15] LABS: BILIRUBIN, DIRECT <0.1 mg/dL (0.0-0.2); BILIRUBIN,INDIRECT 0.3 mg/dL (0.0-0.9); GLUCOSE FASTING 519 mg/dL (70-110)
[2017-01-01 15:28] LABS: URINE APPEARANCE CLEAR; URINE BILIRUBIN NEG (NEG); URINE BLOOD NEG (NEG); URINE COLOR YELLOW; URINE GLUCOSE >1000 MG/DL (NEG); URINE KETONE NEG (NEG); URINE LEUKOCYTE ESTERASE NEG (NEG); URINE NITRATE NEG (NEG); URINE PROTEIN NEG (NEG); URINE SPECIFIC GRAVITY 1.034 (1.003-1.035); URINE UROBILINOGEN 0.2 MG/DL (NEG)
[2017-01-01 15:31] LABS: BETA HYDROXYBUTYRATE 0.08 MMOL/L (0.02-0.27)
[2017-01-01 15:32] LABS: CULTURE INDICATED? NO
[2017-01-02 03:56] LABS: BASOPHIL% 0.7 % (0-2.5); EOSINOPHIL# 0.2 X10e3 (0-0.7); EOSINOPHIL% 3.1 % (0.0-7.0); HEMATOCRIT 32.4 % (35.0-45.0); LYMPHOCYTE# 1.6 X10e3 (1.0-3.5); LYMPHOCYTE% 33.1 % (17.0-45.0); MEAN CELL VOLUME 93.5 FL (83-96); MEAN CORPUSCULAR HEMOGLOBIN 31.7 PG (28-34); MEAN CORPUSCULAR HGB CONC 33.9 g/dL (30-36); MEAN PLATELET VOLUME 8.7 FL (6.5-11.5); MONOCYTE# 0.3 X10e3 (0-1.0); MONOCYTE% 5.6 % (3.0-12.0); NEUTROPHIL# 2.9 X10e3 (1.5-7.1); NEUTROPHIL% 57.5 % (40-75); PLATELET COUNT 173 X10e3 (140-420); RED BLOOD COUNT 3.46 X10e (3.90-5.30); RED CELL DISTRIBUTION WIDTH 11.9 % (11.0-15.5)
[2017-01-02 03:58] LABS: DIFF IND NO
[2017-01-02 04:27] LABS: ALBUMIN SERUM 3.2 g/dL (3.5-5.0); ALKALINE PHOSPHATASE 60 U/L (32-92); ALT (SGPT) 35 U/L (10-40); AST (SGOT) 33 U/L (10-42); BILIRUBIN,TOTAL 0.8 mg/dL (0.2-2.0); BLOOD UREA NITROGEN 10 mg/dL (9-23); BUN/CREATININE RATIO 16.66; CALCIUM SERUM 8.6 mg/dL (8.4-10.2); CARBON DIOXIDE 26 mmol/L (22-31); CHLORIDE 105 mmol/L (100-111); CREATININE SERUM 0.6 mg/dL (0.6-1.4); GLOM FILT RATE Estimated ABOVE60 mL/min (>60); GLUCOSE FASTING 263 mg/dL (70-110); POTASSIUM 4.2 mmol/L (3.5-5.1); PROTEIN TOTAL SERUM 5.3 g/dL (6.0-8.3); SODIUM 138 mmol/L (135-145)
[2017-01-04 04:17] LABS: CHOLESTEROL 250 mg/dL (0-200); HDL CHOLESTEROL 49 mg/dL (35-95); LDL/HDL RATIO 4 RATIO (0-4); TRIGLYCERIDES 142 mg/dL (10-160)
[2017-01-04 04:21] LABS: LDL CHOLESTEROL 173 mg/dL (-130)
[2017-01-06 04:12] LABS: BASOPHIL% 0.4 % (0-2.5); DIFF IND NO; EOSINOPHIL# 0.1 X10e3 (0-0.7); EOSINOPHIL% 1.2 % (0.0-7.0); HEMATOCRIT 33.8 % (35.0-45.0); HEMOGLOBIN 11.7 gm/dL (12.0-16.0); LYMPHOCYTE# 1.1 X10e3 (1.0-3.5); LYMPHOCYTE% 14.2 % (17.0-45.0); MEAN CELL VOLUME 93.9 FL (83-96); MEAN CORPUSCULAR HEMOGLOBIN 32.4 PG (28-34); MEAN CORPUSCULAR HGB CONC 34.5 g/dL (30-36); MONOCYTE# 0.4 X10e3 (0-1.0); MONOCYTE% 5.6 % (3.0-12.0); NEUTROPHIL% 78.6 % (40-75); PLATELET COUNT 242 X10e3 (140-420); RED CELL DISTRIBUTION WIDTH 12.4 % (11.0-15.5); WHITE BLOOD COUNT 7.7 X10e3 (4.0-10.5)
[2017-01-06 04:40] LABS: BLOOD UREA NITROGEN 28 mg/dL (9-23); BUN/CREATININE RATIO 46.66; CALCIUM SERUM 8.1 mg/dL (8.4-10.2); CARBON DIOXIDE 26 mmol/L (22-31); CHLORIDE 108 mmol/L (100-111); CREATININE SERUM 0.6 mg/dL (0.6-1.4); GLOM FILT RATE Estimated ABOVE60 mL/min (>60); GLUCOSE FASTING 55 mg/dL (70-110); POTASSIUM 3.7 mmol/L (3.5-5.1); SODIUM 135 mmol/L (135-145)
[2017-01-11 06:25] LABS: BLOOD UREA NITROGEN 22 mg/dL (9-23); BUN/CREATININE RATIO 31.42; CALCIUM SERUM 8.9 mg/dL (8.4-10.2); CARBON DIOXIDE 27 mmol/L (22-31); CHLORIDE 104 mmol/L (100-111); CREATININE SERUM 0.7 mg/dL (0.6-1.4); GLOM FILT RATE Estimated ABOVE60 mL/min (>60); GLUCOSE FASTING 152 mg/dL (70-110); MAGNESIUM 1.9 mg/dL (1.6-3.0); POTASSIUM 4.5 mmol/L (3.5-5.1); SODIUM 141 mmol/L (135-145)
[2017-01-14 07:08] LABS: BLOOD UREA NITROGEN 20 mg/dL (9-23); BUN/CREATININE RATIO 33.33; CALCIUM SERUM 8.6 mg/dL (8.4-10.2); CARBON DIOXIDE 26 mmol/L (22-31); CHLORIDE 105 mmol/L (100-111); CREATININE SERUM 0.6 mg/dL (0.6-1.4); GLOM FILT RATE Estimated ABOVE60 mL/min (>60); GLUCOSE FASTING 166 mg/dL (70-110); MAGNESIUM 1.9 mg/dL (1.6-3.0); POTASSIUM 4.3 mmol/L (3.5-5.1); SODIUM 140 mmol/L (135-145)
[2017-01-14 19:03] LABS: HEMATOCRIT 33.3 % (35.0-45.0); HEMOGLOBIN 11.4 gm/dL (12.0-16.0); MEAN CELL VOLUME 93.6 FL (83-96); MEAN CORPUSCULAR HGB CONC 34.2 g/dL (30-36); MEAN PLATELET VOLUME 8.5 FL (6.5-11.5); RED BLOOD COUNT 3.56 X10e (3.90-5.30); RED CELL DISTRIBUTION WIDTH 12.7 % (11.0-15.5); WHITE BLOOD COUNT 4.9 X10e3 (4.0-10.5)
== END 2017-01-16 12:43 | DRG 638 ==
LOC: CED 15:03 → CEDOF 16:00 → C4C 21:57 → C2A 01-06 10:00
PROVIDERS: Emergency Medicine; Family Medicine; Internal Medicine
DX: E11.65 Type 2 diabetes mellitus with hyperglycemia (principal); D64.9 Anemia, unspecified; I10 Essential (primary) hypertension; F03.91 Unspecified dementia, unspecified severity, with behavioral disturbance; Z86.73 Personal history of transient ischemic attack (TIA), and cerebral infarction without residual deficits; Z79.4 Long term (current) use of insulin; E78.5 Hyperlipidemia, unspecified; Z23 Encounter for immunization; I08.8 Other rheumatic multiple valve diseases; Z90.49 Acquired absence of other specified parts of digestive tract; Z90.710 Acquired absence of both cervix and uterus; Z86.79 Personal history of other diseases of the circulatory system; Z82.3 Family history of stroke; Z88.1 Allergy status to other antibiotic agents; Z88.8 Allergy status to other drugs, medicaments and biological substances; I31.3 Pericardial effusion (noninflammatory)
CPT/HCPCS: 36415; 36600; 80048; 80053; 80061; 80076; 81003; 82010; 82803; 82947; 83735; 85025; 85027; 90688; 93306; 96360; 96361; 99285; G0008; G0378; J1815

== ENCOUNTER 2017-05-09 10:20 | Emergency (ER) | payer BC, OTHER ==
--- NOTE | ~2017-05-09 | CT71 ---
[facility] A Service of [facility] RADIOLOGY TEXT RESULTS PATIENT: BRENT MALDONADO LOCATION: [facility] : [birth year] UNIT #: [id number] AGE: [address]: Mauricio Barbosa MD SEX: F ORDER DR: [id number] [facility] [address] [place], [place] [address] [id number] E MR#: [id number] Acc #: [id number] NAME: BRENT MALDONADO. : 1950 SEX: F STUDY DATE/TIME: 05/09/2017 11:10 UNIT: [facility] ROOM: STUDY DESCRIPTION: CT Head Wo Contrast Attending Physician: Mauricio Barbosa M.D. Ordering Physician: Mauricio Barbosa M.D. Primary Care Physician: Primary Care Physician No MEDICAL IMAGING REPORT This report is preliminary unless electronic signature is present EXAM Head CT without contrast HISTORY Syncope and dizziness onset this morning accompanied by headache and neck pain. TECHNIQUE Axial images were obtained without contrast and compared with 07/31/2015. This CT examination was performed with one or more of the following radiation dose reduction techniques: automatic exposure control, adjustment of mA and/or kV according to patient size, and iterative reconstruction. FINDINGS Mild atrophy is noted. There is no evidence of mass lesion, hemorrhage or edema. No midline shift is seen. Extraaxial structures are unremarkable. No change is noted since the previous exam. IMPRESSION Mild atrophy. No acute findings. Dictated by... Carlos Jamison M.D. THIS IS AN ELECTRONICALLY VERIFIED REPORT Carlos Jamison M.D. at 05/09/2017 4:47 PM HAIMF/mich TD: 05/09/2017 14:27 JOB #: [id number] [facility] A Service [facility] RADIOLOGY TEXT RESULTS PATIENT: BRENT MALDONADO LOCATION: [facility] : 54 UNIT #: [id number] AGE: [address]: Mauricio Barbosa MD SEX: F ORDER DR: MEDICAL IMAGING REPORT Page 1 of 1 COPY
--- NOTE | ~2017-05-09 | CR72 ---
[facility] A Service of [facility] RADIOLOGY TEXT RESULTS PATIENT: BRENT MALDONADO LOCATION: [facility] : [birth year] UNIT #: [id number] AGE: [address]: Mauricio Barbosa MD SEX: F ORDER DR: [id number] [facility] [address] [place], [place] [address] [id number] E MR#: [id number] Acc #: [id number] NAME: BRENT MALDONADO : 1950 SEX: F STUDY DATE/TIME: 05/09/2017 1100 UNIT: [facility] ROOM: STUDY DESCRIPTION: CR Chest Single View Portable Attending Physician: Mauricio Barbosa M.D. Ordering Physician: Mauricio Barbosa M.D. Primary Care Physician: No Primary Care Physician MEDICAL IMAGING REPORT This report is preliminary unless electronic signature is present EXAM Chest, portable, 05/09/2017, 11 o'clock. CLINICAL HISTORY 66-year-old woman who suffered syncopal episode and fall today, headache, history of stroke, diabetes, atrial fibrillation and asthma. COMPARISON 09/23/2014 FINDINGS Single upright portable view of the chest demonstrates heart size at the upper limits of normal. The aorta is atherosclerotic but appears normal in caliber. There is perihilar and basilar vascular crowding, likely related to the low lung volumes. There is no definite edema, pneumonia, or effusion. There is no rib fracture or pneumothorax seen. IMPRESSION Slightly low lung volumes with perihilar and basilar vascular crowding but no definite edema, effusion, or pneumothorax. No definite fracture. Dictated by... Yojana Corral M.D. THIS IS AN ELECTRONICALLY VERIFIED REPORT Yojana Corral M.D. at 05/09/2017 2:34 PM AD/malu TD: 05/09/2017 14:13 JOB #: [id number] [facility] A Service of [facility] RADIOLOGY TEXT RESULTS PATIENT: BRENT MALDONADO LOCATION: [facility] : 54 UNIT #: [id number] AGE: [address]: Mauricio Barbosa MD SEX: F ORDER DR: MEDICAL IMAGING REPORT Page 1 of 1 COPY
--- NOTE | ~2017-05-09 | CT52 ---
[facility] A Service of [facility] RADIOLOGY TEXT RESULTS PATIENT: BRENT MALDONADO LOCATION: [facility] : 54 UNIT #: [id number] AGE: [address]: Mauricio Barbosa MD SEX: F ORDER DR: [id number] [facility] [address] [place], [place] [address] [id number] E MR#: [id number] Acc #: [id number] NAME: BRENT MALDONADO. : 1950 SEX: F STUDY DATE/TIME: 05/09/2017 11:10 UNIT: [facility] ROOM: STUDY DESCRIPTION: CT Cervical Spine Wo Cont Attending Physician: Mauricio Barbosa M.D. Ordering Physician: Mauricio Barbosa M.D. Primary Care Physician: No Primary Care Physician MEDICAL IMAGING REPORT This report is preliminary unless electronic signature is present EXAM Cervical spine CT. HISTORY Patient fell this morning with complaint of headache and neck pain. TECHNIQUE Axial imaging was obtained from the skull base to the upper thoracic spine and evaluated at bone window with multiplanar reformats. This CT exam was performed with one or more of the following radiation dose reduction techniques: automatic exposure control, adjustment of mA and/or kV according to patient size, and iterative reconstruction. FINDINGS Generally mild degenerative changes are seen at the cervical discs with more moderate degenerative disc disease at C3-4 where there is disc space narrowing and posterior osteophyte formation that extends to both uncovertebral joints. This causes only mild central stenosis and mild foraminal narrowing. There is also a left-sided uncovertebral joint osteophyte at C4-5 with mild foraminal narrowing as a result. Posterior facets are intact. There is a slight degenerative retrolisthesis across C3-4 and C4-5. No fractures or destructive bone lesions are seen. IMPRESSION Degenerative disc disease most prominent at C3-4. Mild degenerative retrolisthesis of C3-4 and C4-5. No fractures or other acute findings. Dictated by... Carlos Jamison M.D. THIS IS AN ELECTRONICALLY VERIFIED REPORT Carlos Jamison M.D. at 05/09/2017 4:47 PM [facility] A Service of [facility] RADIOLOGY TEXT RESULTS PATIENT: BRENT MALDONADO LOCATION: [facility] : 54 UNIT #: [id number] AGE: [address]: Mauricio Barbosa MD SEX: F ORDER DR: Debra TD: 05/09/2017 16:03 JOB #: [id number] MEDICAL IMAGING REPORT Page 1 of 1 COPY
--- NOTE | ~2017-05-09 | EKG ---
PATIENT: BRENT MALDONADO UNIT #: [id number] Ventricular Rate: 68 BPM Atrial Rate: 68 BPM P-R Interval: 170 ms QRS Duration: 82 ms Q-T Interval: 416 ms QTC Calculation(Bezet): 442 ms P [place]: 71 degrees Calculated T [place]: 53 degrees Diagnosis Line: Normal sinus rhythm Diagnosis Line: Normal ECG Diagnosis Line: When compared with ECG of 28-FEB-2014 01:02, Diagnosis Line: No significant change was found Diagnosis Line: Confirmed by PETER ZENG MD ([id number]) on Diagnosis Line: 05/11/2017 9:54:01 AM INTERPRETING MDHung RODRIGUEZ
[2017-05-09 11:19] LABS: URINE SOURCE CLEAN CATCH
[2017-05-09 11:22] LABS: URINE APPEARANCE CLEAR; URINE BILIRUBIN NEG (NEG); URINE BLOOD NEG (NEG); URINE COLOR YELLOW; URINE GLUCOSE 500 MG/DL (NEG); URINE KETONE NEG (NEG); URINE LEUKOCYTE ESTERASE NEG (NEG); URINE NITRATE NEG (NEG); URINE PROTEIN NEG (NEG); URINE SPECIFIC GRAVITY 1.012 (1.003-1.035); URINE UROBILINOGEN 0.2 MG/DL (NEG)
[2017-05-09 11:25] LABS: CULTURE INDICATED? NO
[2017-05-09 12:37] LABS: POC - CKMB 2.3 ng/mL (0.0-7.9); POC - TROPONIN <0.05 ng/mL (<=0.05)
[2017-05-09 12:39] LABS: BASOPHIL% 0.4 % (0-2.5); EOSINOPHIL% 0.7 % (0.0-7.0); HEMATOCRIT 37.3 % (35.0-45.0); HEMOGLOBIN 12.3 gm/dL (12.0-16.0); LYMPHOCYTE# 0.5 X10e3 (1.0-3.5); LYMPHOCYTE% 9.5 % (17.0-45.0); MEAN CELL VOLUME 88.5 FL (83-96); MEAN CORPUSCULAR HEMOGLOBIN 29.3 PG (28-34); MEAN CORPUSCULAR HGB CONC 33.1 g/dL (30-36); MEAN PLATELET VOLUME 8.1 FL (6.5-11.5); MONOCYTE# 0.2 X10e3 (0-1.0); MONOCYTE% 4.4 % (3.0-12.0); NEUTROPHIL# 4.4 X10e3 (1.5-7.1); PLATELET COUNT 277 X10e3 (140-420); RED BLOOD COUNT 4.21 X10e (3.90-5.30); RED CELL DISTRIBUTION WIDTH 13.2 % (11.0-15.5); WHITE BLOOD COUNT 5.2 X10e3 (4.0-10.5)
[2017-05-09 12:43] LABS: DIFF IND NO
[2017-05-09 13:06] LABS: ALBUMIN SERUM 3.9 g/dL (3.5-5.0); BILIRUBIN, DIRECT 0.1 mg/dL (0.0-0.2); BILIRUBIN,INDIRECT 0.5 mg/dL (0.0-0.9); BILIRUBIN,TOTAL 0.6 mg/dL (0.2-2.0); BUN/CREATININE RATIO 24.28; CALCIUM SERUM 8.9 mg/dL (8.4-10.2); CREATININE SERUM 0.7 mg/dL (0.6-1.4); GLOM FILT RATE Estimated 91.6 mL/min (>60); POTASSIUM 4.5 mmol/L (3.5-5.1); PROTEIN TOTAL SERUM 7.2 g/dL (6.0-8.3)
== END 2017-05-09 13:53 | disposition home or self-care (01) ==
LOC: CED 10:20
PROVIDERS: Emergency Medicine
DX: Z04.3 Encounter for examination and observation following other accident (principal); E11.9 Type 2 diabetes mellitus without complications; J45.909 Unspecified asthma, uncomplicated; Z86.73 Personal history of transient ischemic attack (TIA), and cerebral infarction without residual deficits; Z90.49 Acquired absence of other specified parts of digestive tract; K21.9 Gastro-esophageal reflux disease without esophagitis; I10 Essential (primary) hypertension; Z88.1 Allergy status to other antibiotic agents; Z88.8 Allergy status to other drugs, medicaments and biological substances; W19.XXXA Unspecified fall, initial encounter; Y92.129 Unspecified place in nursing home as the place of occurrence of the external cause
CPT/HCPCS: 36415; 70450; 71010; 72125; 80048; 80076; 81003; 82553; 82947; 84484; 85025; 93005; 99285